=== PATIENT | female | born 1990 | race Caucasian/White ===

== ENCOUNTER 2016-08-09 22:33 | Inpatient (IN) | payer MEDICAID, OTHER ==
--- NOTE | 2016-08-09 22:49 | ED PDOC ---
Psych Transfer Clearance - Clearance Statement Clearance Statement: Reviewed vital signs, lab results and transfer papers. Patient clinically stable for psychiatric admission.
[2016-08-09 22:51] VITALS: O2SAT 98
[2016-08-09] MEDS ORDERED: Magnesium Hydroxide Susp 30 ml UD PO PRN (23:39)
[2016-08-09] MEDS ORDERED: Alum-Mag Hydrox-Simethicone Susp (30 mL) PO PRN (23:39)
[2016-08-09] MEDS ORDERED: DiphenhydrAMINE 50 mg/ml Inj IM PRN (23:39)
[2016-08-10 08:29] LABS: T4 4.65 ug/dl (5.5-11.0)
[2016-08-10 08:43] LABS: THYROID STIMULATING HORMONE 1.74 mIU/ML (0.46-4.68)
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
--- NOTE | 2016-08-10 12:21 | CP.PCM.CON ---
History of Present Illness - History of Present Illness History of Present Illness: 26 y/o female with schizoafective disorder was transferred from [facility] for admission to psych unit. Patient not providing any story at present . All history obtained from chart review and staff. Patient has been having marital issues and feeling sad , lonely and depressed. She has history of depression with prior suicidal attempts. At present she is not willing to provide any history and not allowing physical exam. Allergies ; NKDA PMH ; schizoaffective disorder Medications; unknown surgery ; Not known family and social history ; not known ROs ; unable to obtain since patient not answering any questions Past Patient History - CARDIAC Hx Cardiac Disorders: No - PULMONARY Hx Respiratory Disorders: No - NEUROLOGICAL Hx Neurological Disorder: No - HEENT Hx HEENT Problems: No - RENAL Hx Chronic Kidney Disease: No - ENDOCRINE/METABOLIC Hx Endocrine Disorders: No - HEMATOLOGICAL/ONCOLOGICAL Hx Blood Disorders: No - INTEGUMENTARY Hx Dermatological Problems: No - MUSCULOSKELETAL/RHEUMATOLOGICAL Hx Musculoskeletal Disorders: No - GASTROINTESTINAL Hx Gastrointestinal Disorders: No - GENITOURINARY/GYNECOLOGICAL Hx Genitourinary Disorders: No - PSYCHIATRIC Hx Substance Use: Yes (marijuana) - SURGICAL HISTORY Hx Surgeries: No - ANESTHESIA Hx Anesthesia: No Hx Anesthesia Reactions: No Has any member of the family had a problem w/ anesthesia?: No Meds Allergies/Adverse Reactions: Allergies Allergy/AdvReac Type Severity Reaction Status Date / Time No Known Allergies Allergy Verified 08/09/16 22:44 - Medications Medications: Current Medications Acetaminophen (Tylenol 325mg Tab) 650 mg PO Q4 PRN PRN Reason: Pain, moderate (4-7) Al Hydrox/Mg Hydrox/Simethicone (Maalox Plus 30 Ml) 30 ml PO Q4 PRN PRN Reason: Dyspepsia Benztropine Mesylate (Cogentin) 1 mg PO BID SAMI Clonazepam (Klonopin) 1 mg PO BIDHS [facility] Diphenhydramine HCl (Benadryl) 50 mg IM Q6 PRN PRN Reason: Extrapyramidal S/S Unable PO Diphenhydramine HCl (Benadryl) 50 mg PO Q6 PRN PRN Reason: Extrapyramidal Symptoms Diphenhydramine HCl (Benadryl) 50 mg PO HS PRN PRN Reason: Sleep Duloxetine HCl (Cymbalta) 30 mg PO DAILY [facility] Last Admin: 08/10/16 11:53 Dose: 30 mg Haloperidol (Haldol) 5 mg PO Q4 PRN PRN Reason: Agitation Haloperidol Lactate (Haldol) 5 mg IM Q4 PRN PRN Reason: Agitation, Unable to Take PO Lorazepam (Ativan) 2 mg IM Q4 PRN PRN Reason: Anxiety/Agitation,Unable PO Lorazepam (Ativan) 2 mg PO Q4 PRN PRN Reason: Anxiety/Agitation Magnesium Hydroxide (Milk Of Magnesia) 30 ml PO HS PRN PRN Reason: Constipation Topiramate (Topamax) 25 mg PO BID SAMI Results - Vital Signs Recent Vital Signs: Last Vital Signs Temp 97.3 F L 08/10/16 09:00 Pulse 86 08/10/16 09:00 Resp 18 08/10/16 09:00 BP 116/90 08/10/16 09:00 Pulse Ox 98 08/09/16 22:41 - Labs Labs: Laboratory Results - last 24 hr 08/10/16 07:15 Triglycerides 98 Cholesterol 197 LDL Cholesterol Direct 118 HDL Cholesterol 54 Thyroxine (T4) 4.65 L TSH 3rd Generation 1.74 Assessment & Plan - Assessment and Plan (Free Text) Assessment: 26 y/o female with schizoafective disorder was transferred from [facility] for admission to psych unit. Patient not providing any story at present . All history obtained from chart review and staff. Patient has been having marital issues and feeling sad , lonely and depressed. She has history of depression with prior suicidal attempts. At present she is not willing to provide any history and not allowing physical exam. 1. Schizoafective disorder continue management as per psych Re consult medicine if needed.
--- NOTE | 2016-08-11 12:08 | PCM.PYCHPN ---
Psychiatric Progress Note - Psychiatric Progress Note Patient seen today, length of contact: in treatment team Patient Chief Complaint: i want to go Problems Identified/Issues Discussed: pt states she is anxious and wants to see her children. she states she wants 3mg of klonpin tid and she states she feels like punching people. she has psychomotor slowing. she agrees to allow increase in topamax to target mood symptoms. Medication Change: Yes (increase topamax) Mental Status Examination - Cognitive Function Orientation: Person, Place, Situation, Time Memory: Intact Attention: WNL Concentration: WNL Association: WN Fund of Knowledge: [facility] Decription of patient's judgement and insights: fair - Mood Mood: Depressed, Anxious - Affect Affect: Blunted - Speech Speech: Appropriate - Formal Thought Process Formal Thought Process: No Impairment (denies a/v hallucinations) Psychotic Thoughts and Behaviors: internally preoccupied - Suicidal Ideation Suicidal Ideation: No Plan: today pt is denying suicidal thoughts - Homicidal Ideation Homicidal Ideation: No Goal/Treatment Plan - Goal/Treatment Plan Need for Continued Stay: Remain at risks for inpatient hospitalization, Discharge may exacerbated symptoms Progress Toward Problem(s) and Goals/Treatment Plan: schizoaffective disorder will continue current hospital course will increase the pt's topamax continue klonopin disposition planning Estimated Date of D/C: 08/14/16 - Smoking Cessation Smoking Cessation Initiated: No Reason for not providing: declines
--- NOTE | 2016-08-12 12:31 | PCM.PYCHPN ---
Psychiatric Progress Note - Psychiatric Progress Note Patient seen today, length of contact: discussed with team Patient Chief Complaint: i am not ready to go Problems Identified/Issues Discussed: pt c.o feeling anxious. states she is sad. she if taking medications as prescribed. states she does not feel ready to go. she c/o feeling bored here. Medical Problems: pt states risperdal caused her to lactate, states she was on 1600mg of seroquel and gained weight. she does not want lithium or clozaril because she "doesn't want blood work" Medication Change: Yes (increase cymbalta tomorrow) Medical Record Reviewed: Yes Mental Status Examination - Cognitive Function Orientation: Person, Place, Situation, Time Memory: Intact Attention: WNL Concentration: WNL Association: WNL Fund of Knowledge: [facility] Decription of patient's judgement and insights: fair - Mood Mood: Depressed, Anxious - Affect Affect: Blunted - Speech Speech: Appropriate - Formal Thought Process Formal Thought Process: No Impairment (denies a/v hallucinations) Psychotic Thoughts and Behaviors: internally preoccupied - Suicidal Ideation Suicidal Ideation: No - Homicidal Ideation Homicidal Ideation: No Goal/Treatment Plan - Goal/Treatment Plan Need for Continued Stay: Remain at risks for inpatient hospitalization, Discharge may exacerbated symptoms Progress Toward Problem(s) and Goals/Treatment Plan: schizoaffective disorder will continue current hospital course continue topamax increase cymbalta continue klonopin disposition planning Estimated Date of D/C: 08/14/16
--- NOTE | 2016-08-12 13:34 | CP.PCM.PN ---
Subjective - Date & Time of Evaluation Date of Evaluation: 08/12/16 Time of Evaluation: 13:20 - Subjective Subjective: C/O dry nonproductive cough with some soreness in throat Pharynx is non-erythematous and without exudate. NO cervical/submandibular/suprclavicular lymphadenopathy Respiratory Exam: CTA B/L NO R/R/W Ordered Promethazine/DM 5 mL PO Q6H PRN cough Rashaad Roche D.O. Objective - Vital Signs/Intake and Output Vital Signs (last 24 hours): Temp Pulse Resp BP Pulse Ox 97.2 F L 76 18 103/63 98 08/12/16 09:00 08/12/16 09:00 08/12/16 09:00 08/12/16 09:00 08/09/16 22:41 - Medications Medications: Current Medications Acetaminophen (Tylenol 325mg Tab) 650 mg PO Q4 PRN PRN Reason: Pain, moderate (4-7) Al Hydrox/Mg Hydrox/Simethicone (Maalox Plus 30 Ml) 30 ml PO Q4 PRN PRN Reason: Dyspepsia Benztropine Mesylate (Cogentin) 1 mg PO BID [facility] Last Admin: 08/12/16 08:41 Dose: 1 [facility] Last Admin: 08/12/16 08:41 Dose: 1 mg Diphenhydramine HCl (Benadryl) 50 mg IM Q6 PRN PRN Reason: Extrapyramidal S/S Unable PO Diphenhydramine HCl (Benadryl) 50 mg PO Q6 PRN PRN Reason: Extrapyramidal Symptoms Last Admin: 08/12/16 07:57 Dose: 50 mg Diphenhydramine HCl (Benadryl) 50 mg PO HS PRN PRN Reason: Sleep Duloxetine HCl (Cymbalta) 60 mg PO DAILY [facility] Haloperidol (Haldol) 5 mg PO Q4 PRN PRN Reason: Agitation Haloperidol Lactate (Haldol) 5 mg IM Q4 PRN PRN Reason: Agitation, Unable to Take PO Lorazepam (Ativan) 2 mg IM Q4 PRN PRN Reason: Anxiety/Agitation,Unable PO Lorazepam (Ativan) 2 mg PO Q4 PRN PRN Reason: Anxiety/Agitation Magnesium Hydroxide (Milk Of Magnesia) 30 ml PO HS PRN PRN Reason: Constipation Promethazine HCl/Dextromethorphan (Phenergan Dm Syrup) 5 ml PO Q6 PRN PRN Reason: Cough Topiramate (Topamax) 50 mg PO BID [facility]I Last Admin: 08/12/16 08:41 Dose: 50 mg
[2016-08-12] MEDS: Promethazine DM 6.25 mg-15 mg/5 ml Syrup PO PRN ×2 (16:42→22:26)
[2016-08-12 17:15] LABS: BASO # 0.1 K/uL (0.0-0.2); BASO % 0.6 % (0.0-2.0); EOS # 0.1 K/uL (0.0-0.7); LYMPH # 3.1 K/uL (1.0-4.3); LYMPH % 23.8 % (20.0-40.0); MEAN CELL VOLUME 80.4 fl (81.0-99.0); MEAN CORPUSCULAR HEMOGLOBIN 25.6 pg (27.0-31.0); MEAN CORPUSCULAR HGB CONC 31.8 g/dL (33.0-37.0); MEAN PLATELET VOLUME 8.8 fl (7.2-11.7); MONO # 1.2 K/uL (0.0-0.8); MONO % 9.3 % (0.0-10.0); NEUT # 8.4 K/uL (1.8-7.0); NEUT % 65.3 % (50.0-75.0); RED CELL DISTRIBUTION WIDTH 15.9 % (11.5-14.5); WHITE BLOOD COUNT 12.9 K/uL (4.8-10.8)
[2016-08-12 17:16] LABS: ALKALINE PHOSPHATASE 116 U/L (38-126); ALT/SGPT 62 U/L (9-52); AST/SGOT 38 U/L (14-36); BILIRUBIN,TOTAL 0.1 mg/dl (0.2-1.3); BLOOD UREA NITROGEN 16 mg/dl (7-17); CALCIUM 9.1 mg/dL (8.4-10.2); CARBON DIOXIDE 20 mmol/L (22-30); CHLORIDE 109 mmol/L (98-107); GFR AFRICAN-AMERICAN > 60; GLUCOSE,RANDOM 115 mg/dL (65-105); POTASSIUM 3.8 MMOL/L (3.6-5.0); SODIUM 139 mmol/l (132-148); TOTAL PROTEIN 7.6 G/DL (6.3-8.2)
[2016-08-12 17:33] LABS: T4 5.12 ug/dl (5.5-11.0)
[2016-08-12 17:47] LABS: THYROID STIMULATING HORMONE 1.64 mIU/ML (0.46-4.68)
[2016-08-13] MEDS: Promethazine DM 6.25 mg-15 mg/5 ml Syrup PO PRN ×2 (09:11→17:23)
--- NOTE | 2016-08-13 09:54 | CP.PCM.PN ---
Subjective - Date & Time of Evaluation Date of Evaluation: 08/13/16 Time of Evaluation: 09:30 - Subjective Subjective: 1). Elevated WBC WBC is elevated at 12.6 with NO change in differential Vitals are stable with NO fevers STAT Urine Culture (she states that she has burning with urination. She also stated that she has been incontinent of urine since giving stating that she can not feel when urine is going to be released. However, when I explained to the Nurse, who was present, that I will order a Urine Culture, patient stated that she had to urinate at that moment, so she is providing contradictory information) Urine Test as Chest X Ray will need to be ordered. I believe that the WBC elevation could be reactive. Repeat CBC w/diff for morning 08/14/16 2). Anemia Considering RBC indices this could be iron deficiency Iron Studies have been ordered for morning 08/14/16 3). Low T4 TSH is NORMAL but T4 is slightly low at 5.12. She will need to have TSH and T4 repeated in 2 to 4 weeks through her PMD 4). Request for HIV Test Patient initially could not provide reason for wanting HIV test but after further questioning stated that she has NOT used IV drugs and that she had unprotected sex with her whom she does not know may have been cheating on her (but could not provide information as to how long ago the unprotected sex was). Rapid HIV Test ordered STAT 5). Slightly Elevated AST and ALT Repeat CMP for morning 08/14/16 Upon patient's discharge from the Psychiatry Unit she should be instructed to follow up with her Primary Care Physician/[facility] for the followin). Evaluation by Urologist for the questionable history of incontinence of urine 2). Further workup for the suspected Iron Deficiency Anemia 3). Repeat TSH and T4 in 2 to 4 weeks 4). Results of Urine Culture and HIV Tests if the results are not back before her discharge Rashaad Roche D.O. Objective - Vital Signs/Intake and Output Vital Signs (last 24 hours): Temp Pulse Resp BP Pulse Ox 97.0 F L 60 18 129/89 98 08/13/16 09:13 08/13/16 09:13 08/13/16 09:13 08/13/16 09:13 08/09/16 22:41 - Medications Medications: Current Medications Acetaminophen (Tylenol 325mg Tab) 650 mg PO Q4 PRN PRN Reason: Pain, moderate (4-7) Last Admin: 08/12/16 14:15 Dose: 650 mg Al Hydrox/Mg Hydrox/Simethicone (Maalox Plus 30 Ml) 30 ml PO Q4 PRN PRN Reason: Dyspepsia Benztropine Mesylate (Cogentin) 1 mg PO BID [facility] Last Admin: 08/13/16 08:32 Dose: 1 mg [facility] Last Admin: 08/13/16 08:32 Dose: 1 mg Diphenhydramine HCl (Benadryl) 50 mg IM Q6 PRN PRN Reason: Extrapyramidal S/S Unable PO Diphenhydramine HCl (Benadryl) 50 mg PO Q6 PRN PRN Reason: Extrapyramidal Symptoms Last Admin: 08/12/16 07:57 Dose: 50 mg Diphenhydramine HCl (Benadryl) 50 mg PO HS PRN PRN Reason: Sleep Last Admin: 08/12/16 23:34 Dose: 50 mg Duloxetine HCl (Cymbalta) 60 mg PO DAILY [facility] Last Admin: 08/13/16 08:32 Dose: 60 mg Haloperidol (Haldol) 5 mg PO Q4 PRN PRN Reason: Agitation Haloperidol Lactate (Haldol) 5 mg IM Q4 PRN PRN Reason: Agitation, Unable to Take PO Lorazepam (Ativan) 2 mg IM Q4 PRN PRN Reason: Anxiety/Agitation,Unable PO Lorazepam (Ativan) 2 mg PO Q4 PRN PRN Reason: Anxiety/Agitation Last Admin: 08/12/16 15:42 Dose: 2 mg Magnesium Hydroxide (Milk Of Magnesia) 30 ml PO HS PRN PRN Reason: Constipation Promethazine HCl/Dextromethorphan (Phenergan Dm Syrup) 5 ml PO Q6 PRN PRN Reason: Cough Last Admin: 08/13/16 09:11 Dose: 5 ml Topiramate (Topamax) 50 mg PO BID [facility] Last Admin: 08/13/16 08:32 Dose: 50 mg - Labs Labs: 08/12/16 17:00 08/12/16 17:00
--- NOTE | 2016-08-13 13:47 | PCM.PYCHPN ---
Psychiatric Progress Note - Psychiatric Progress Note Patient seen today, length of contact: discussed with team Patient Chief Complaint: i feel itchy Problems Identified/Issues Discussed: pt a bit less anxious today. pt states that she thinks it may be from the cogentin. she feels mood improvement with cymbalta. no nausea. no shortness of breath or rash. Medical Problems: pt states risperdal caused her to lactate, states she was on 1600mg of seroquel and gained weight. she does not want lithium or clozaril because she "doesn't want blood work" Medication Change: No ( ) Medical Record Reviewed: Yes Mental Status Examination - Cognitive Function Orientation: Person, Place, Situation, Time Memory: Intact Attention: WNL Concentration: WNL Association: WNL Fund of Knowledge: [facility] Decription of patient's judgement and insights: fair - Mood Mood: Depressed, Anxious - Affect Affect: Blunted - Speech Speech: Appropriate - Formal Thought Process Formal Thought Process: No Impairment (denies a/v hallucinations) Psychotic Thoughts and Behaviors: internally preoccupied - Suicidal Ideation Suicidal Ideation: No - Homicidal Ideation Homicidal Ideation: No Goal/Treatment Plan - Goal/Treatment Plan Need for Continued Stay: Remain at risks for inpatient hospitalization, Discharge may exacerbated symptoms Progress Toward Problem(s) and Goals/Treatment Plan: schizoaffective disorder will continue current hospital course continue topamax increase cymbalta continue ismael allison cogentin and replace with benadryl disposition planning Estimated Date of D/C: 08/14/16
[2016-08-14 07:19] LABS: BASO % 0.5 % (0.0-2.0); EOS # 0.2 K/uL (0.0-0.7); EOS % 1.6 % (0.0-4.0); MEAN CELL VOLUME 80.3 fl (81.0-99.0); MEAN CORPUSCULAR HEMOGLOBIN 25.8 pg (27.0-31.0); MEAN CORPUSCULAR HGB CONC 32.2 g/dL (33.0-37.0); MEAN PLATELET VOLUME 8.9 fl (7.2-11.7); MONO # 0.8 K/uL (0.0-0.8); MONO % 8.1 % (0.0-10.0); NEUT % 59.8 % (50.0-75.0); NRBC % 0.1 % (0.0-0.0); RED CELL DISTRIBUTION WIDTH 16.1 % (11.5-14.5)
[2016-08-14 07:48] LABS: ALKALINE PHOSPHATASE 109 U/L (38-126); ALT/SGPT 57 U/L (9-52); AST/SGOT 31 U/L (14-36); BILIRUBIN,TOTAL 0.3 mg/dl (0.2-1.3); BLOOD UREA NITROGEN 16 mg/dl (7-17); CALCIUM 9.1 mg/dL (8.4-10.2); CARBON DIOXIDE 24 mmol/L (22-30); CHLORIDE 108 mmol/L (98-107); GFR AFRICAN-AMERICAN > 60; GLUCOSE,RANDOM 89 mg/dL (65-105); POTASSIUM 3.8 MMOL/L (3.6-5.0); SODIUM 141 mmol/l (132-148)
[2016-08-14 07:57] LABS: IRON 43 ug/dL (37-170)
--- NOTE | 2016-08-14 13:32 | PCM.PYCHDC ---
Mental Status Examination - Mental Status Examination Orientation: Person, Place, Situation, Time Memory: Intact Mood: Neutral Affect: Broad Speech: Appropriate Attention: WNL Concentration: WNL Association: WNL Fund of Knowledge: WNL Formal Thought Process: No Impairment Description of patient's judgement and insight: fair Psychotic Thoughts and Behaviors: denies a/v hallucinations, thoughts are goal directed Suicidal Ideation: No Current Homicidal Ideation?: No Plan: pt denies any suicidal or homicidal thoughts Discharge Summary - Discharge Note Reason for Hospitalization: pt reported suicidal thoughts, depression Psychiatric History (includes Medical, Family, Personal Hx): history of having suicidal thoughts/attempt in past. linked to a [facility] Laboratory Data: Abnormal Lab Results 08/14/16 08/14/16 08/14/16 06:39 06:39 06:39 WBC 10.0 RBC 4.61 Hgb 11.9 L Hct 37.0 MCV 80.3 L MCH 25.8 L MCHC 32.2 L RDW 16.1 H Plt Count 269 MPV 8.9 Neut % (Auto) 59.8 Lymph % (Auto) 30.0 [place] % (Auto) 8.1 Eos % (Auto) 1.6 Baso % (Auto) 0.5 Neut # 6.0 Lymph # 3.0 [place] # 0.8 Eos # 0.2 Baso # 0.0 Sodium 141 Potassium 3.8 Chloride 108 H Carbon Dioxide 24 Anion Gap 13 BUN 16 Creatinine 0.9 Est GFR ( Amer) > 60 Est GFR (Non-Af Amer) > 60 Random Glucose 89 Calcium 9.1 Iron 43 TIBC 390 % Saturation 11 L Ferritin 7.4 Total Bilirubin 0.3 AST 31 ALT 57 H Alkaline Phosphatase 109 Total Protein 7.0 Albumin 3.6 Globulin 3.4 Albumin/Globulin Ratio 1.0 Consultations:: List each consultation separately and include: 1. Reason for request. 2. Findings. 3. Follow-up Consultations: seen by hospitalist Summary of Hospital Course include:: 1. Description of specific treatment plan utilized for patients during their course of treatmen. 2. Summarize the time- course for resolution of acute symptoms and/or regressed behaviors. 3. Describe issues identified and worked on during hospitalization. 4. Describe medication utilized. 5. Describe medical problems identified and treated. 6. Reassessment of suicide risk Summary of Hospital Course: 26 yo female with dx of schizoaffective disorder. pt attends php at [facility] in [place] and lives in [place]. pt presented to er at [facility] with complaints of depression and suicidal thoughts. she states she chronically hears voices. she is reporting she is "about to be homeless." she reports she has marital stress with her . she reports she has poor sleep , has lost 11 pounds in a week because of appetite loss. she reports she feels hopeless, sad, tired and wants to isolate from family/friends. she reports a history of multiple suicide attempts, last in june by cutting wrists. she is denying any access to weapons. she reports she has periods where she forgets to take her medications. she reports a history of anger problems. pt has a six yo son at home. and her share custody. hospital course pt was admitted to [facility] and oriented to the unit. pt was placed on routine safety protocols. pt was seen by the hospitalist. she met with the treatment team daily. she was taking abilify maintaina and not due until august 18 for her injection. the pt's ssri was discontinued and she was started on cymbalta. she tolerated the cymbalta at 60mg and felt her mood was improved. she was social with peers and participating in treatment. she did not have any episodes of aggression or agitation while on the unit. at the time of discharge she was goal directed and future oriented and was denying any suicidal or homicidal thoughts. - Final Diagnosis (DSM 5) Condition upon Discharge: STABLE DSM 5: schizoaffective disorder Disposition: HOME/ ROUTINE Follow-up Treatment Plan: follow up with aftercare as directed take medications as prescribed do not use alcohol, tobacco or other illicit substances call 911 if any suicidal or homicidal thoughts due for abilify maintaina on 08/17/16 and to follow up at her [facility] Prescriptions/Medication Reconciliation: clonazePAM [Klonopin] 1 mg PO BIDHS #45 tab DiphenhydrAMINE [Benadryl] 25 mg PO BID #30 cap DULoxetine [Cymbalta] 60 mg PO DAILY #15 ecc Topiramate [Topamax] 50 mg PO BID #30 tab - Smoking Cessation Smoking Cessation Medication prescribed: No Reason for not providing: declines - Antipsychotic Medications Pt discharged on 2 or more routine antipsychotic medications: No
[2016-08-14 15:29] VITALS: BP 107/69; PULSE 69; RESP 16; TEMP 96.3
== END 2016-08-14 15:38 | disposition home or self-care (01) | DRG 430 ==
LOC: H.ER 22:33 → H.PSYCH 22:48
PROVIDERS: ADMIT Psychiatry & Neurology Psychiatry; ATTEND Psychiatry & Neurology Psychiatry
PROC: GZHZZZZ Group Psychotherapy (ICD-10-PCS; principal; 2016-08-09)
PROC: GZ56ZZZ Individual Psychotherapy, Supportive (ICD-10-PCS; 2016-08-09)
DX: F25.9 Schizoaffective disorder, unspecified (principal); R45.851 Suicidal ideations; D50.9 Iron deficiency anemia, unspecified